=== PATIENT | male | born 1960 | race Caucasian/White ===

== ENCOUNTER → 2020-02-05 | Outpatient (CLI) | payer BC | LOC: SJCVCIMAG 08:47 | PROVIDERS: ATTEND Internal Medicine Cardiovascular Disease | DX: I25.10 Atherosclerotic heart disease of native coronary artery without angina pectoris (principal); I49.3 Ventricular premature depolarization; E78.5 Hyperlipidemia, unspecified; I10 Essential (primary) hypertension; E11.9 Type 2 diabetes mellitus without complications ==

== ENCOUNTER → 2021-02-22 | Outpatient (CLI) | payer BC | LOC: SJCVCIMAG 06:31 → SJCVC 08:10 → SJCVCIMAG 09:45 | PROVIDERS: ATTEND Internal Medicine Cardiovascular Disease | DX: R93.1 Abnormal findings on diagnostic imaging of heart and coronary circulation (principal); I10 Essential (primary) hypertension; E11.9 Type 2 diabetes mellitus without complications; E78.5 Hyperlipidemia, unspecified ==